=== PATIENT | female | born 1950 | race Caucasian/White ===

== ENCOUNTER 2016-10-17 16:27 | Emergency (ER) | payer OTHER ==
[~2016-10-17] VITALS: Ht 154.9 cm; Wt 99.8 kg
[~2016-10-17 16:27] MED LIST: ACTOPLUS MET 11 EAC1 PO; LISINOPRIL40 M1 PO; TRIAMTERENE-HC1 EAC1 PO
[2016-10-17 16:32] VITALS: BP 150/77
--- NOTE | 2016-10-17 18:06 | ED MVC/FALL/TRAUMA COMPLAINT ---
History of Present Illness General Chief Complaint: Fall Stated Complaint: PT FELL AT [employer] Source: patient, old records Exam Limitations: no limitations Vital Signs & Intake/Output Vital Signs & Intake/Output Vital Signs Date Time Temp Pulse Resp B/P B/P Pulse O2 O2 Flow FiO2 Mean Ox Delivery Rate 10/17 1632 98.6 88 18 150/77 98 Room Air ED Intake and Output 10/18 0000 06 1200 Intake Total Output Total Balance Patient 220 lb Weight Weight Reported by Patient Measurement Method Allergies Coded Allergies: clarithromycin (From BIAXIN) (Intermediate, "EVERY SIDE EFFECT KNOWN TO MAN, EVEN HALLUCINATIONS" 11/15/15) Reconcile Medications Lisinopril 40 MG TABLET 1 TAB PO DAILY BP (Reported) Milk Thistle (Unknown Strength) TABLET (Unknown Dose) PO DAILY SUPPLEMENT ( Reported) Pioglitazone HCl/Metformin HCl (Actoplus Met 15 MG-850 MG Tab) 1 EACH TABLET 1 TAB PO BID DIABETES (Reported) Triamterene/Hydrochlorothiazid (Triamterene-Hctz 37.5-25 MG Tb) 1 EACH TABLET 1 TAB PO DAILY BP (Reported) Triage Note: 66 YO FEMALE TO TRIAGE C/O TRIP AND FALL ON THURSDAY AT [employer]. STATES SHE FELL FACE DOWN. C/O PAIN TO UPPER ABD PAIN. -LOC. Triage Nurses Notes Reviewed? yes Onset: Gradual Duration: day(s): (5), constant Timing: recent history Severity: mild, moderate Severity Numbers: 6 Injuries/Fall Location: chest Method of Injury: fall Loss of Consciousness: no loss of consciousness Modifying Factors: Worsens With: breathing, coughing. Associated Symptoms: denies HPI: 66-year-old female presents to ER for evaluation complaining of a 5 day history of bilateral right greater than left rib pain after she tripped and fell in [employer]. She states since then the pain has been constant waxing and waning in intensity however worse with breathing coughing laughing sneezing. She denies any abdominal pain nausea vomiting. There is no loss of consciousness. No neck or back pain arm or leg injury. She denies headache. There is no prodromal dizziness light as part of her fall. She's been taking Aleve without improvement. (LEXA POLANCO,LUCIANA) Past History Travel History Traveled to [place] past 21 day No Medical History Any Pertinent Medical History? 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 No (LUCIANA KANG) Review of Systems Review of Systems Constitutional: Reports: see HPI. All Other Systems: Reviewed and Negative Comments Review of systems: See HPI, All other systems negative. Constitutional, no chills no fever, no malaise HEENT: No visual changes no sore throat no congestion Cardiovascular: No chest pain , no palpitatio Skin: no rashes, no change in skin Respiratory: No dyspnea no cough no sputum GI: No nausea no vomiting, Muscle skeletal: No joint pain, no joint swelling, no back pain, no neck pain, Neurologic: No numbness no confusion, no headache Psych: No stress Heme/endocrine: No bruising Immunology: No lymphadenopathy (LUCIANA KANG) Physical Exam Physical Exam General Appearance: well developed/nourished, no apparent distress, alert, awake Comments: Well-developed well-nourished patient in no apparent distress. HEENT: Atraumatic, extraocular motion intact Neck: Supple, FROM Back: FROM no ecchymosis or signs of trauma Cardiovascular: Regular rate and rhythms no murmurs rubs Respiratory: Chest right-sided lateral chest wall pain no ecchymosis.There were no bony deformities, no asymmetry. No respiratory distress. Patient speaking in full complete sentences. Breath sounds clear to auscultation bilaterally: NO W/R /R Extremities: full range of motion atraumatic Neuro: awake, alert, and oriented to person, place and time. There were no obvious focal neurologic abnormalities. Skin: Warm & dry;No appreciable rash on exposed skin Psych: Mood affect normal, normal memory normal judgment. Core Measures ACS in differential dx? No Severe Sepsis Present: No Septic Shock Present: No (LUCIANA KANG) Progress Differential Diagnosis: abd injury, C/T/L spine injury, ext injury, pelvis injury, pnemothorax, spinal cord injury Plan of Care: X-rays ordered patient declining anything for pain when offered I discussed with the patient at length all of their results. I had an extensive conversation regarding need for close follow up with their primary care physician this week as well as return precautions. I answered all of their questions, they feel comfortable with the plan and follow-up care. Diagnostic Imaging: Viewed by Me: Radiology Read. Discussed w/RAD: Radiology Read. Radiology Impression: PATIENT: TREVOR PUGH PRESENT AGE: 66 PATIENT ACCOUNT NO: [id number] : 48 LOCATION: [facility] ORDERING PHYSICIAN: LUCIANA POLANCO SERVICE DATE: 10/17/16 EXAM TYPE: RAD - XRY- RIBS UNILATERAL-RIGHT EXAMINATION: XR RIBS, RIGHT CLINICAL INFORMATION: Right- sided rib pain following fall. COMPARISON: Chest x-ray 05/03/2013. TECHNIQUE: Single frontal view of the chest as well as 4 additional views of the right- sided ribs. FINDINGS: Lungs are clear. No consolidation, pneumothorax, or pleural effusion. The cardiomediastinal silhouette and pulmonary vasculature are normal. Osseous structures are unremarkable. Ribs are intact. No fractures are identified. IMPRESSION: No visible grossly displaced right-sided rib fractures. No acute pulmonary process. DICTATED BY: SENTHIL KING MD DATE/TIME DICTATED: 10/17/161913 TELECOM FIELD TECHNICIAN:RHIANONN DATE/TIME TRANSCRIBED:10/17/161913 CONFIDENTIAL, DO NOT COPY WITHOUT APPROPRIATE AUTHORIZATION. <Electronically signed in Other Vendor System> SIGNED BY: SENTHIL KING MD 10/17/161926 (LUCIANA KANG) Departure Departure Time of Disposition: 1932 Disposition: HOME OR SELF CARE Condition: Stable Clinical Impression Primary Impression: Rib injury Referrals: ARLENE CAM MD (PCP/Family) Additional Instructions: Rest ice Tylenol Motrin for pain follow-up with your primary care physician and return with any concerns. Departure Forms: Customer Survey General Discharge Information (LUCIANA KANG) PA/PASSENGER RATE CLERK Co-Sign Statement Statement: ED Attending supervision documentation- [] I saw and evaluated the patient. I have also reviewed all the pertinent lab results and diagnostic results. I agree with the findings and the plan of care as documented in the PA's/PASSENGER RATE CLERK's documentation. [X] I have reviewed the ED Record and agree with the PA's/PASSENGER RATE CLERK's documentation. [] Additions or exceptions (if any) to the PAs/PASSENGER RATE CLERK's note and plan are summarized below: [] (NEIDA SAWANT,CRISTIANO Fajardo)
[2016-10-17] MEDS ORDERED: MILK THISTLE175 MG PO (18:17)
--- NOTE | 2016-10-17 19:27 | RADIOLOGY REPORT ---
EXAMINATION: XR RIBS, RIGHT CLINICAL INFORMATION: Right-sided rib pain following fall. COMPARISON: Chest x-ray 05/03/2013. TECHNIQUE: Single frontal view of the chest as well as 4 additional views of the right-sided ribs. FINDINGS: Lungs are clear. No consolidation, pneumothorax, or pleural effusion. The cardiomediastinal silhouette and pulmonary vasculature are normal. Osseous structures are unremarkable. Ribs are intact. No fractures are identified. IMPRESSION: No visible grossly displaced right-sided rib fractures. No acute pulmonary process.
== END 2016-10-17 20:56 ==
LOC: ERH 16:27
DX: S29.9XXA Unspecified injury of thorax, initial encounter (principal); W01.0XXA Fall on same level from slipping, tripping and stumbling without subsequent striking against object, initial encounter; Y93.9 Activity, unspecified; Y92.512 Supermarket, store or market as the place of occurrence of the external cause
CPT/HCPCS: 71100-RT